=== PATIENT | male | born 1990 | race African-American/Black ===

== ENCOUNTER 2021-05-18 12:33 | Emergency (ER) | payer MEDICAID, OTHER ==
[~2021-05-18] VITALS: Ht 172.7 cm; Wt 104.3 kg
[2021-05-18 12:35] VITALS: BP_DIAS 93
[2021-05-18] MEDS ORDERED: ACETAMINOPHEN 650 mg PER 20.3 mL UD PO ONE (13:00)
[2021-05-18 15:36] VITALS: BP_SYST 155
[2021-05-18] MEDS ORDERED: cefTRIAXone SOD 1,000 MG VL IM ONE (16:30)
== END 2021-05-18 16:44 | disposition home or self-care (01) ==
LOC: ER 12:33
DX: U07.1 COVID-19 (principal); J06.9 Acute upper respiratory infection, unspecified; E11.9 Type 2 diabetes mellitus without complications; E78.5 Hyperlipidemia, unspecified; I10 Essential (primary) hypertension
CPT/HCPCS: 36415; 71045; 87426; 96372; 99284; J0696

== ENCOUNTER 2021-05-28 21:38 | Emergency (ER) | payer MEDICAID ==
[~2021-05-28] VITALS: Ht 172.7 cm; Wt 97.5 kg
[2021-05-28 23:20] LABS: Basophils # (auto) 0.1 10 ^3/uL (0-0.2); Basophils % (auto) 0.4 % (0.0-2.0); Eosinophils # (auto) 0 10 ^3/uL (0-0.8); Monocytes % (auto) 9.7 % (0.0-12.0); Red Cell Distribution Width 14.8 % (11.8-14.3)
[2021-05-28 23:22] LABS: Hematocrit 42.3 % (41.0-53.0); Hemoglobin 13.2 g/dL (13.5-17.5); Lymphocytes # (auto) 2.2 10 ^3/uL (0.4-5.4); Lymphocytes % (auto) 15.5 % (10.0-50.0); Mean Corpuscular Hemoglobin 22.8 pg (28.0-32.0); Mean Corpuscular Hgb Conc. 31.3 g/dL (32.0-36.0); Mean Corpuscular Volume 72.8 fL (80.0-100.0); Monocytes # (auto) 1.4 10 ^3/uL (0-1.3); Neutrophils # (auto) 10.8 10 ^3/uL (1.6-8.6); Neutrophils % (auto) 74.4 % (37.0-80.0); Nucleated Red Blood Cells % 0.2 %; Red Blood Cells 5.81 10^6/uL (4.5-5.90); White Blood Cell 14.5 10^3/uL (4.4-10.8)
[2021-05-28 23:41] LABS: Albumin 3.4 g/dL (3.4-5.0); Calcium 8.8 mg/dL (8.5-10.1); Potassium 5.2 mmol/L (3.5-5.1)
[2021-05-28 23:50] LABS: BUN/Creatinine Ratio 7.8; Bilirubin, Total 0.3 mg/dL (0.2-1.0); CRP High Sensitivity 1.33 mg/dL (< 0.3); Total Protein 8.2 g/dL (6.4-8.2)
[2021-05-28 23:59] LABS: INR 1.04 (0.9-1.15); Partial Thromboplastin Time 24.2 sec (23.6-33.0)
[2021-05-29] MEDS ORDERED: SODIUM CHLORIDE 0.9% 1,000 ML IV ONE (01:15)
[2021-05-29 03:29] VITALS: BP 132/75
== END 2021-05-29 03:45 | disposition home or self-care (01) ==
LOC: ER 21:38
DX: U07.1 COVID-19 (principal); R56.9 Unspecified convulsions; I10 Essential (primary) hypertension; E11.9 Type 2 diabetes mellitus without complications; E78.5 Hyperlipidemia, unspecified
CPT/HCPCS: 36415; 70450; 71045; 80053; 80156; 82728; 83735; 84484; 85025; 85379; 85610; 85730; 86141; 87426; 93005; 96360; 99285; J7030

== ENCOUNTER 2021-10-21 00:44 | Emergency (ER) | payer MEDICAID ==
[~2021-10-21] VITALS: Ht 180.3 cm; Wt 108.9 kg
[2021-10-21] MEDS ORDERED: ACETAMINOPHEN 650 mg PER 20.3 mL UD PO ONE (01:15)
[2021-10-21 02:07] LABS: Eosinophils # (auto) 0 10 ^3/uL (0-0.8); Hemoglobin 13.1 g/dL (13.5-17.5); Monocytes # (auto) 1.1 10 ^3/uL (0-1.3); Red Cell Distribution Width 13.8 % (11.8-14.3)
[2021-10-21 02:10] LABS: Basophils # (auto) 0 10 ^3/uL (0-0.2); Basophils % (auto) 0.2 % (0.0-2.0); Eosinophils % (auto) 0.2 % (0.0-7.0); Hematocrit 41.1 % (41.0-53.0); Lymphocytes # (auto) 1.3 10 ^3/uL (0.4-5.4); Lymphocytes % (auto) 7.7 % (10.0-50.0); Mean Corpuscular Hemoglobin 23.1 pg (28.0-32.0); Mean Corpuscular Hgb Conc. 31.9 g/dL (32.0-36.0); Mean Corpuscular Volume 72.4 fL (80.0-100.0); Neutrophils # (auto) 13.9 10 ^3/uL (1.6-8.6); Neutrophils % (auto) 84.9 % (37.0-80.0); Nucleated Red Blood Cells % 0.1 %; Red Blood Cells 5.68 10^6/uL (4.5-5.90); White Blood Cell 16.4 10^3/uL (4.4-10.8)
[2021-10-21 02:27] LABS: Albumin 3.6 g/dL (3.4-5.0); Calcium 9.1 mg/dL (8.5-10.1); Potassium 3.6 mmol/L (3.5-5.1)
[2021-10-21 02:29] LABS: BUN/Creatinine Ratio 6.1
[2021-10-21 02:32] LABS: Bilirubin, Total 0.2 mg/dL (0.2-1.0); Total Protein 8.1 g/dL (6.4-8.2)
[2021-10-21 03:05] VITALS: BP 158/98
[2021-10-21] MEDS ORDERED: IBUPROFEN 100MG/5ML ORAL SUSP 100 MG/5 ML UD PO ONE (03:45)
== END 2021-10-21 04:26 | disposition home or self-care (01) ==
LOC: EDUNIT# 00:44 → ER 00:44 → EDBD 00:44 → ER 04:26
DX: B34.9 Viral infection, unspecified (principal); F84.0 Autistic disorder; R50.9 Fever, unspecified; Z20.822 Contact with and (suspected) exposure to COVID-19
CPT/HCPCS: 36415; 71045; 80053; 85025

== ENCOUNTER 2021-11-08 22:08 | Emergency (ER) | payer MEDICAID ==
[~2021-11-08] VITALS: Ht 172.7 cm; Wt 97.5 kg
[2021-11-08 22:10] VITALS: BP 102/83
[2021-11-09] MEDS ORDERED: CEPH-509 PO (07:58)
== END 2021-11-09 01:06 | disposition left against medical advice (07) ==
LOC: ER 22:08
DX: M79.674 Pain in right toe(s) (principal); Z53.21 Procedure and treatment not carried out due to patient leaving prior to being seen by health care provider

== ENCOUNTER 2021-11-09 06:34 | Emergency (ER) | payer MEDICAID ==
[~2021-11-09] VITALS: Ht 182.9 cm; Wt 99.8 kg
[2021-11-09] MEDS ORDERED: CEPH-509 PO (07:58)
[2021-11-09 08:05] VITALS: BP 133/86
== END 2021-11-09 08:28 | disposition home or self-care (01) ==
LOC: ER 06:34
DX: S91.201A Unspecified open wound of right great toe with damage to nail, initial encounter (principal); I10 Essential (primary) hypertension; E11.9 Type 2 diabetes mellitus without complications; E78.5 Hyperlipidemia, unspecified; Z79.899 Other long term (current) drug therapy; X58.XXXA Exposure to other specified factors, initial encounter; Y93.89 Activity, other specified; Y92.89 Other specified places as the place of occurrence of the external cause; Y99.8 Other external cause status